=== PATIENT | male | born 2000 | race Hispanic/Latino ===

== ENCOUNTER 2024-03-24 00:22 | Emergency (ER) | payer SELFPAY ==
--- NOTE | 2024-03-24 03:20 | ER ---
Nurse's Notes [facility] Name: Jah Chester Age: 24 yrs Sex: Male : 2000 Arrival Date: 03/24/2024 Time: 00:22 Bed 5 Private MD: Diagnosis: Right heel soft tissue contusion, acute right heel injury,, acute back pain, acute low back injury Presentation: 03/24 00:38 Chief complaint: Patient states: was on a ladder and the ladder was falling so the cm10 patient jumped off. Pt reports that he is now having pain to his right heel and to his back. Pt reports that he is currently not having any pain but has pain when he puts weight on his foot. Coronavirus screen: Client denies travel out of the [place] in the last 14 days. At this time, the client does not indicate any symptoms associated with coronavirus-19. Ebola Screen: Patient denies travel to an Ebola-affected area in the 21 days before illness onset. No symptoms or risks identified at this time. Initial Sepsis Screen: Does the patient meet any 2 criteria? No. Patient's initial sepsis screen is negative. Does the patient have a suspected source of infection? No. Patient's initial sepsis screen is negative. Risk Assessment: Do you want to hurt yourself or someone else? Patient reports no desire to harm self or others. Onset of symptoms was March 24, 2024. 00:38 Method Of Arrival: Wheelchair cm10 00:38 Acuity: OUSMANE 4 cm10 Triage Assessment: 00:40 General: Appears in no apparent distress. comfortable, Behavior is calm, cooperative. cm10 Pain: Denies pain. Neuro: No deficits noted. Level of Consciousness is awake, alert, obeys commands, Oriented to person, place, time, situation. Historical: - Allergies: 00:39 No Known Allergies; cm10 - Home Meds: 00:39 None [Active]; cm10 - PMHx: 00:39 None; cm10 - PSHx: 00:39 None; cm10 - Immunization history:: Adult Immunizations up to date. - Infectious Disease History:: Denies. - Social history:: Smoking status: Patient denies any tobacco usage or history of. - Family history:: not pertinent. Screenin:50 [facility] ED Fall Risk Assessment (Adult) History of falling in the last 3 months, jw7 including since admission Yes- single mechanical fall (1 pt) Confusion or Disorientation No (0 pts) Intoxicated or Sedated No (0 pts) Impaired Gait No (0 pts) Mobility Assist Device Used No (0 pt) Altered Elimination No (0 pt) Score/Fall Risk Level 0 - 2 = Low Risk Oriented to surroundings, Maintained a safe environment, Educated pt \T\ family on fall prevention, incl call for assistance when getting out of bed. Abuse screen: Denies threats or abuse. Denies injuries from another. Nutritional screening: No deficits noted. Tuberculosis screening: No symptoms or risk factors identified. Assessment: 00:50 General: Appears in no apparent distress. comfortable, Behavior is calm, cooperative, jw7 appropriate for age. Pain: Denies pain. Neuro: Level of Consciousness is awake, alert, obeys commands, Oriented to person, place, time, situation, Appropriate for age. 00:50 Cardiovascular: Heart tones S1 S2 present Capillary refill < 3 seconds Clubbing of nail jw7 beds is absent JVD is absent Patient's skin is warm and dry. Respiratory: Airway is patent Trachea midline Respiratory effort is even, unlabored, Respiratory pattern is regular, symmetrical, Breath sounds are clear bilaterally. GI: Abdomen is flat, non-distended, Bowel sounds present X 4 quads. Abd is soft and non tender X 4 quads. : No deficits noted. No signs and/or symptoms were reported regarding the genitourinary system. EENT: No deficits noted. No signs and/or symptoms were reported regarding the EENT system. Derm: Skin is intact, is healthy with good turgor, Skin is dry, Skin is normal, Skin temperature is warm. Musculoskeletal: Circulation, motion, and sensation intact. Range of motion: intact in all extremities. 01:46 Reassessment: Patient appears in no apparent distress at this time. No changes from jw7 previously documented assessment. Patient and/or family updated on plan of care and expected duration. Pain level reassessed. Patient is alert, oriented x 3, equal unlabored respirations, skin warm/dry/pink. 02:52 Reassessment: Patient appears in no apparent distress at this time. No changes from jw7 previously documented assessment. Patient and/or family updated on plan of care and expected duration. Pain level reassessed. Patient is alert, oriented x 3, equal unlabored respirations, skin warm/dry/pink. 03:44 Reassessment: Patient appears in no apparent distress at this time. No changes from jw7 previously documented assessment. Patient and/or family updated on plan of care and expected duration. Pain level reassessed. Patient is alert, oriented x 3, equal unlabored respirations, skin warm/dry/pink. Vital Signs: 00:38 BP 146 / 92; Pulse 79; Resp 16; Temp 98.5; Pulse Ox 99% on R/A; Weight 63 kg; Height 5 cm10 ft. 6 in. ; Pain 0/10; 01:47 BP 137 / 87; Pulse 74; Resp 16 S; Pulse Ox 98% on R/A; jw7 02:52 BP 147 / 95; Pulse 86; Resp 16 S; Pulse Ox 97% on R/A; jw7 03:44 BP 134 / 95; Pulse 71; Resp 17 S; Pulse Ox 99% on R/A; jw7 00:38 Body Mass Index 22.06 (63.00 kg, 169 cm) cm10 00:38 Pain Scale: Adult cm10 [place] Coma Score: 21:43 Eye Response: spontaneous(4). Motor Response: obeys commands(6). Verbal Response: sp4 oriented(5). Total: 15. ED Course: 00:24 Patient arrived in ED. gm2 00:31 Eyad Kovacs MD is Attending Physician. sp4 00:39 Triage completed. cm10 00:40 Arm band placed on Patient placed in an exam room, on a stretcher. cm10 00:49 Foot Right 3 View XRAY In Process Unspecified. EDMS 00:50 Patient has correct armband on for positive identification. Bed in low position. Call jw7 light in reach. Provided Education on: Use of Call Light. 01:00 No provider procedures requiring assistance completed. jw7 01:13 Spine Lumbar Wo Con CT In Process Unspecified. EDMS 03:45 Patient did not have IV access during this emergency room visit. jw7 Administered Medications: No medications were administered Medication: 01:00 VIS not applicable for this client. jw7 Outcome: 03:19 Discharge ordered by . sp4 03:44 Discharged to home ambulatory, jw7 03:44 Condition: stable 03:44 Discharge instructions given to patient, Instructed on discharge instructions, follow up and referral plans. medication usage, Demonstrated understanding of instructions, follow-up care, medications, Prescriptions given X 1, 03:45 Patient left the ED. jw7 Signatures: Dispatcher [employer] EDMS Lacy Oneill RN RN jw7 Eyad Kovacs MD MD sp4 Joyce Hull RN RN cm10 Lacy Mosley 2 Corrections: (The following items were deleted from the chart) 03:45 03:44 Discharge instructions given to patient, Instructed on discharge instructions, jw7 follow up and referral plans. medication usage, Demonstrated understanding of instructions, follow-up care, medications, Prescriptions given X 2, jw7
--- NOTE | 2024-03-24 03:20 | EDPHYS ---
Physician Documentation [facility] Name: Jah Chester Age: 24 yrs Sex: Male : 2000 Arrival Date: 03/24/2024 Time: 00:22 Bed 5 Private MD: ED Physician Eyad Kovacs HPI: 03/24 00:31 This 24 yrs old Male presents to ER via Unassigned with complaints of Fall sp4 Injury, patient fell off ladder. 21:43 24-year-old male presents for acute fall off a ladder with complaint of the sp4 right heel pain also lower back pain, there is no deformity. Patient is ambulatory on arrival. Historical: - Allergies: 00:39 No Known Allergies; cm10 - Home Meds: 00:39 None [Active]; cm10 - PMHx: 00:39 None; cm10 - PSHx: 00:39 None; cm10 - Immunization history:: Adult Immunizations up to date. - Infectious Disease History:: Denies. - Social history:: Smoking status: Patient denies any tobacco usage or history of. - Family history:: not pertinent. ROS: 21:43 Constitutional: Negative for fever, chills, and weight loss, positive acute fall, sp4 positive right heel pain, positive lower back pain 21:43 All other systems are negative, Exam: 21:43 Constitutional: This is a well developed, well nourished patient who is awake, alert, sp4 and in no acute distress. Head/Face: Normocephalic, atraumatic. Eyes: Pupils equal round and reactive to light, extra-ocular motions intact. Lids and lashes normal. Conjunctiva and sclera are not injected. Cornea within normal limits. Periorbital areas with no swelling, redness, or edema. ENT: Nares patent. No nasal discharge, no septal abnormalities noted. Tympanic membranes are normal and external auditory canals are clear. Oropharynx with no redness, swelling, or masses, exudates, or evidence of obstruction, uvula midline. Mucous membranes moist. Neck: Trachea midline, no thyromegaly or masses palpated, and no cervical lymphadenopathy. Supple, full range of motion without nuchal rigidity, or vertebral point tenderness. Chest/axilla: Normal chest wall appearance and motion. Nontender with no deformity. No lesions are appreciated. Cardiovascular: Regular rate and rhythm with a normal S1 and S2. No gallops, murmurs, or rubs. Normal PMI, no JVD. No pulse deficits. Respiratory: Lungs have equal breath sounds bilaterally, clear to auscultation and percussion. No rales, rhonchi or wheezes noted. No increased work of breathing, no retractions or nasal flaring. Abdomen/GI: Soft, with normal bowel sounds. No distension or tympany. No guarding or rebound. No evidence of tenderness throughout. Back: No spinal tenderness. No costovertebral tenderness. Skin: Warm, dry with normal turgor. Normal color with no rashes, no lesions, and no evidence of cellulitis. MS/ Extremity: Pulses equal, no cyanosis. Neurovascular intact. Full, normal range of motion. Positive right heel tenderness without deformity Neuro: Awake and alert, GCS 15, oriented to person, place, time, and situation. Cranial nerves II-XII grossly intact. Motor strength 5/5 in all extremities. Sensory grossly intact. Psych: Awake, alert, with orientation to person, place and time. Behavior, mood, and affect are within normal limits Vital Signs: 00:38 BP 146 / 92; Pulse 79; Resp 16; Temp 98.5; Pulse Ox 99% on R/A; Weight 63 kg; Height 5 cm10 ft. 6 in. ; Pain 0/10; 01:47 BP 137 / 87; Pulse 74; Resp 16 S; Pulse Ox 98% on R/A; jw7 02:52 BP 147 / 95; Pulse 86; Resp 16 S; Pulse Ox 97% on R/A; jw7 03:44 BP 134 / 95; Pulse 71; Resp 17 S; Pulse Ox 99% on R/A; jw7 00:38 Body Mass Index 22.06 (63.00 kg, 169 cm) cm10 00:38 Pain Scale: Adult cm10 [place] Coma Score: 21:43 Eye Response: spontaneous(4). Motor Response: obeys commands(6). Verbal Response: sp4 oriented(5). Total: 15. MDM: 00:47 Patient medically screened. sp4 03:16 ED course: 3 views right foot HISTORY: Foot pain. COMPARISON: None. FINDINGS: No acute sp4 fracture or dislocation is seen. The joint spaces are preserved. The soft tissues are unremarkable. IMPRESSION: No acute fracture or malalignment. ED course: CLINICAL HISTORY: back injury COMPARISON: None. TECHNIQUE: CT LUMBAR SPINE WITHOUT IV CONTRAST on 03/24/2024 12:37 AM CDT This exam was performed according to our departmental dose-optimization program, which includes automated exposure control, adjustment of the mA and/or kV according to patient size and/or use of iterative reconstruction technique. FINDINGS: There is no acute fracture. Vertebral body heights are preserved. Alignment is anatomic. Disc spaces are maintained. Soft tissues are unremarkable. IMPRESSION: No acute fracture or subluxation. . 21:45 Differential diagnosis: abrasion, contusion, fracture, laceration, multiple trauma, sp4 sprain, strain. Data reviewed: vital signs, nurses notes. Consideration of Admission/Observation Escalation of care including admission/observation considered. ED course: X-rays negative. Patient was given a right foot boot, orthopedic boot was applied for comfort. Patient advised no weightbearing for 2 weeks and crutch use.. 03/24 00:36 Order name: Foot Right 3 View XRAY sp4 03/24 00:37 Order name: Spine Lumbar Wo Con CT sp4 03/24 03:18 Order name: Orthopedic shoe: Right foot Ortho boot ankle high; Complete Time: 03:45 sp4 Administered Medications: No medications were administered Disposition Summary: 03/24/24 03:19 Discharge Ordered Notes: Location: Home sp4 Problem: new sp4 Symptoms: have improved sp4 Condition: Stable sp4 Diagnosis - Right heel soft tissue contusion, acute right heel injury,, acute back pain, acute sp4 low back injury Followup: sp4 - With: Private Physician - When: 7 - 10 days - Reason: Recheck today's complaints Discharge Instructions: - Discharge Summary Sheet sp4 - Foot Contusion, [id number] sp4 Forms: - Patient Portal Instructions sp4 Prescriptions: - Ibuprofen 800 mg Oral Tablet - take 1 tablet ORAL route every 8 hours As needed take with food; 30 tablet; sp4 Refills: 0, Product Selection Permitted Signatures: Dispatcher [employer] EDMS Eyad Kovacs MD MD sp4 Joyce Hull RN RN cm10 Corrections: (The following items were deleted from the chart) 00:37 00:37 Spine Lumbar Wo Con+[id number].RAD.BRZ ordered. EDMS EDMS
[2024-03-24 04:02] VITALS: BP 134/95; TEMP 98.5; O2SAT 99
--- NOTE | 2024-03-24 12:33 | RAD REPORT ---
EXAM DESCRIPTION: 3 views right foot CLINICAL HISTORY: Foot pain. COMPARISON: None. FINDINGS: No acute fracture or dislocation is seen. The joint spaces are preserved. The soft tissues are unremarkable. IMPRESSION: No acute fracture or malalignment. Electronically signed by: Khai Trevino MD 03/24/2024 01:01 AM CDT Due to temporary technical issues with the PACS/Fluency reporting system, reports are being signed by the in house radiologist without review as a courtesy to ensure prompt reporting. The interpreting r adiologist is fully responsible for the content of the report.
--- NOTE | 2024-03-24 12:34 | RAD REPORT ---
EXAM DESCRIPTION: CT LUMBAR SPINE WITHOUT IV CONTRAST CLINICAL HISTORY: Back injury COMPARISON: None. TECHNIQUE: CT LUMBAR SPINE WITHOUT IV CONTRAST on 03/24/2024 12:37 AM CDT This exam was performed according to our departmental dose-optimization program, which includes autom ated exposure control, adjustment of the mA and/or kV according to patient size and/or use of iterati ve reconstruction technique. FINDINGS: There is no acute fracture. Vertebral body heights are preserved. Alignment is anatomic. Disc spaces are maintained. Soft tissues are unremarkable. IMPRESSION: No acute fracture or subluxation. Electronically signed by: Brett Craven MD 03/24/2024 01:29 AM CDT Due to temporary technical issues with the PACS/Fluency reporting system, reports are being signed by the in house radiologist without review as a courtesy to ensure prompt reporting. The interpreting r adiologist is fully responsible for the content of the report.
== END 2024-03-24 03:45 | disposition home or self-care (01) ==
LOC: ER 00:22
DX: S90.31XA Contusion of right foot, initial encounter (principal); S39.92XA Unspecified injury of lower back, initial encounter; W11.XXXA Fall on and from ladder, initial encounter; M54.50 Low back pain, unspecified
CPT/HCPCS: 72131; 99283